=== PATIENT | female | born 1975 | race Caucasian/White ===

== ENCOUNTER 2017-02-28 10:09 | Emergency (ER) | payer SELFPAY ==
[2017-02-28 10:24] VITALS: BP 133/90; PULSE 78; TEMP 98.8; BMI 26.6
[2017-02-28] MEDS ORDERED: KETOROLAC TROMETHAMINE 60 MG/2 ML VIAL IM ONE (11:22)
[2017-02-28] MEDS ORDERED: KETOROLAC TROMETHAMINE 60 MG/2 ML VIAL ONE (11:23)
--- NOTE | 2017-02-28 13:02 | PDOC ---
History of Present Illness - General Chief Complaint: Pain Stated Complaint: LT SHOULDER PAIN Time Seen by Provider: 02/28/17 10:36 History Source: Patient Exam Limitations: Language Barrier (MICMALI milieu coordinator [id number]) - History of Present Illness Initial Comments: 02/28/17 17:41 CHIEF COMPLAINT: Left lateral shoulder pain HISTORY OF PRESENT ILLNESS: Patient is a 42-year-old female, primarily Ecuadorean- speaking information obtained by an milieu coordinator, patient presents with left lateral shoulder pain radiating down left arm, denies any chest pain, no shortness of breath. Denies any trauma. Patient reports that she has had pain for a while and is progressively getting worse. Reproduced with all movements. Occurred: reports: other (been ongoing for weeks, progressively getting worse) Severity: reports: moderate Upper Extremity Pain Location: left: shoulder Method of Injury: reports: unknown Modifying Factors: improves with: None Past History - Past Medical History Allergies/Adverse Reactions: Allergies Allergy/AdvReac Type Severity Reaction Status Date / Time No Known Allergies Allergy Verified 02/28/17 10:23 Home Medications: Ambulatory Orders Naproxen [Naprosyn -] 500 mg PO BID #20 tablet 02/28/17 Other medical history: DENIES. - Suicide/Smoking/Psychosocial Hx Smoking History: Never smoked Hx Alcohol Use: No Drug/Substance Use Hx: No Substance Use Type: None Review of Systems - Review of Systems Constitutional: No: Symptoms Reported HEENTM: No: Symptoms Reported Respiratory: No: Symptoms reported Cardiac (ROS): No: Symptoms Reported ABD/GI: No: Symptoms Reported : No: Symptoms Reported Musculoskeletal: Yes: Joint Pain. No: Joint Swelling, Muscle Pain, Muscle Weakness, Neck Pain, Joint Stiffness Integumentary: No: Symptoms Reported, Bruising, Erythema Neurological: No: Symptoms reported, Paresthesia, Tingling, Tremors Hematologic/Lymphatic: No: Symptoms Reported All Other Systems: Reviewed and Negative *Physical Exam - Vital Signs Last Vital Signs Temp Pulse Resp BP Pulse Ox 98.8 F 78 18 133/90 98 02/28/17 10:18 02/28/17 10:18 02/28/17 10:18 02/28/17 10:18 02/28/17 10:18 - Physical Exam General Appearance: Yes: Appropriately Dressed. No: Apparent Distress Neck: positive: Tender lateral (left lateral neck). negative: Tender midline Respiratory/Chest: positive: Lungs Clear, Normal Breath Sounds. negative: Respiratory Distress, Accessory Muscle Use Cardiovascular: positive: Regular Rhythm, Regular Rate Lymphatic: negative: Adenopathy Musculoskeletal: positive: Decreased Range of Motion. negative: Vertebral Tenderness Extremity: positive: Normal Capillary Refill, Normal Inspection (normal visible inspection). negative: Normal Range of Motion (decreased range of motion related to pain, left shoulder), Swelling, Erythema, Inflammation Integumentary: positive: Normal Color, Dry. negative: Erythema, Swelling, Ecchymosis, Bruising Neurologic: positive: Alert, Normal Mood/Affect, Motor Strength 5/5 (motor strength with reproducible pain with movement) Deep Tendon Reflexes: Bicep (L): 3+, Bicep (R): 3+, Tricep (L): 3+, Tricep (R): 3+ ED Treatment Course - ADDITIONAL ORDERS Additional order review: Laboratory Results 02/28/17 11:22 Urine HCG, Qual Negative - RADIOLOGY Radiology Studies Ordered: Category Date Time Status SHOULDER-LEFT [RAD] Stat Radiology 02/28/17 11:22 Completed SPINE-CERVICAL [RAD] Stat Radiology 02/28/17 11:23 Taken - Medications Given in the ED: ED Medications Discontinued Medications Generic Name Dose Route Start Last Admin Trade Name Freq PRN Reason Stop Dose Admin Ketorolac Tromethamine 60 mg 02/28/17 11:22 02/28/17 11:32 Toradol Injection - IM 02/28/17 11:23 60 mg ONCE ONE Administration Medical Decision Making - Medical Decision Making 02/28/17 13:05 A/P : Patient here for evaluation of left shoulder pain, pain to lateral shoulder with numbness and tingling radiating down hands. Denies any injury., sent to x-ray demonstrated calcifications to left lateral humerus consistent with calcific rotator cuff tendinopathy we'll discharge patient home with arm sling, Naprosyn for pain, all discharge instructions given to patient via change management lead MICMALI #[id number] I discussed the physical exam findings, ancillary test results and final diagnoses with the patient. I answered all of the patient's questions. The patient was satisfied with the care received and felt comfortable with the discharge plan and treatment plan. The patient will call to arrange follow-up and will return to the Emergency Department with any new, persistent or worsening symptoms. 02/28/17 17:40 02/28/17 17:46 *DC/Admit/Observation/Transfer Diagnosis at time of Disposition: Tendinopathy of left rotator cuff - Discharge Dispostion Disposition: HOME Condition at time of disposition: Good Admit: No - Prescriptions Prescriptions: Naproxen [Naprosyn -] 500 mg PO BID #20 tablet - Referrals Referrals: Fortino Bangura MD [Primary Care Provider] - - Patient Instructions Printed Discharge Instructions: Shoulder Tendinopathy Print Language: ROMANIAN - Post Discharge Activity Forms/Work/School Notes: Back to Work, Parent(s) Back to Work Note
== END 2017-02-28 13:05 | disposition home or self-care (01) ==
LOC: JERFT 10:09
PROC: 3E0233Z Introduction of Anti-inflammatory into Muscle, Percutaneous Approach (ICD-10-PCS; principal; 2017-02-28)
DX: M65.812 Other synovitis and tenosynovitis, left shoulder (principal)
CPT/HCPCS: 72050-TC; 73030-TC-LT; 84703; 99281-25

== ENCOUNTER 2018-08-10 16:03 | Emergency (ER) | payer OTHER ==
[2018-08-10 17:08] VITALS: BMI 23.8
--- NOTE | 2018-08-10 17:08 | PDOC ---
Rapid Medical Evaluation Time Seen by Provider: 08/10/18 17:05 Medical Evaluation: Allergies Allergy/AdvReac Type Severity Reaction Status Date / Time No Known Allergies Allergy Verified 02/28/17 10:23 08/10/18 17:05 I have performed a brief in-person evaluation of this patient. The patient presents with a chief complaint of: SALOMON x 2 days. No pmhx Pertinent physical exam findings:Unremarkable I have ordered the following: upreg The patient will proceed to the ED for further evaluation. 0 Discharge Disposition - Diagnosis Headache Qualifiers: Headache type: unspecified Headache chronicity pattern: acute headache Intractability: not intractable Qualified Code(s): R51 - Headache - Referrals - Patient Instructions - Post Discharge Activity
--- NOTE | 2018-08-10 17:26 | PDOC ---
Attending Attestation - Resident Resident Name: Alexis Grove - ED Attending Attestation I have performed the following: I have examined & evaluated the patient, The case was reviewed & discussed with the resident, I agree w/resident's findings & plan, Exceptions are as noted - Medical Decision Making 08/10/18 20:34 43 years old with no significant past medical history presented to emergency department several day history of waxing and waning headache. No red flags on patient's headache history not sudden onset not maximal at onset no associated neck pain no nausea no vomiting no diarrhea no chest pain. Patient also was experiencing left arm discomfort which made her nervous given that she does have a family history in her mother's side of CAD EKG was performed which demonstrated normal sinus rhythm with no ST elevations or T-wave inversions. A troponin was performed which was negative patient is low risk with a heart score of 0. Status post fluids Reglan and Benadryl patient's headache is completely resolved she feels much better and is asking to go home Patient was provided with neurology follow-up in case her headache returns she was instructed to return to the ED for any severe worsening symptoms or for any concerns. Findings, the need for follow-up and strict return instructions discussed patient. 08/10/18 20:35 <Hunter Urias - Last Filed: 08/10/18 20:34> - HPI HPI: 08/10/18 18:07 The patient is a 43 year old female with a significant past medical history of preeclampsia who presents to the ED for complaint of gradually increasing headache over the course of 2 days with associated intermittent dizziness, posterior neck pain and left arm pain today. She reports the headache became worse last night. She reports the headache is a strong pressure-like headache. She states the headache is located to her temporal regions, eyes and jaw bilaterally. She states she is concerned because her mother had a heart attack at a young age (48-52 years old). She reports her LMP was 10 days ago. She states she last had headaches and high blood pressure during her in 2017, however, states her symptoms today are different because she feels pressure around her eyes. She denies fever, chills, sob, chest pain, palpitations. She denies urinary changes. - Physicial Exam PE: 08/10/18 18:09 ROS: A complete review of 10 out of 10 review of systems is taken and is negative apart from what is previously mentioned below and in the HPI. Physical Exam Vitals: Triage vital signs reviewed General Appearance: No acute distress, well nourished, well developed Head: Atraumatic Eyes: Pupils equal reactive round, extraocular movement intact Neck: Supple; No nuchal rigidity Chest Wall: Nontender Cardiac: Regular rate and rhythm, no murmurs, no rubs, no gallops Lungs: Clear to auscultation bilateral, good air movement bilaterally Abdomen: Soft, nondistended, normal bowel sounds, nontender to palpation Rectal: Exam deferred Extremities: Full range of motion to all extremities, no cyanosis, clubbing, or edema Skin: Warm and dry, no rashes or lesions, no rash, no petechiae Neuro: AOX3; Cranial Nerves 2-12 grossly intact, Strength intact to all extremities, Sensation intact to all extremities, Psych: Normal mood, normal affect <Coty Freeman - Last Filed: 08/10/18 20:59> Heart Score/ECG Review - History History: Slightly suspicious - Electrocardiogram EKG: Normal - Age Age: </= 45 - Risk Factors Based on the list above the patient has:: No risk factors known - Troponin Troponin: </= normal limit - Score Heart Score - Total: 0 - ECG Impressions Comment:: 08/10/18 20:[address] elevations or T-wave inversions <Hunter Urias - Last Filed: 08/10/18 20:34> Attestations - Attestations 08/10/18 18:10 Documentation prepared by Coty Freeman, acting as medical office manager for Hunter Urias MD <Coty Freeman - Last Filed: 08/10/18 20:59>
--- NOTE | 2018-08-10 17:54 | PDOC ---
History of Present Illness - General Chief Complaint: Headache Stated Complaint: HEADACHE Time Seen by Provider: 08/10/18 17:05 History Source: Patient Exam Limitations: Language Barrier - History of Present Illness Initial Comments: 43 yo F h/o preeclampsia p/w worsening headache x 2 days. The headache became worse last night which involves the b/l temporal region, radiating to b/ l eyes, pressure like, constant, 9/10 at worse, associated with scalp tenderness , eye redness, L shoulder pain, vision change, but no n/v, photophobia or phonophobia. She endorses similar episodes during pregnancies and family history of preeclampsia in sister and daughter. Her LMP was 10 days ago. Denies fever, chills, sob, chest pain. Past History - Past Medical History Allergies/Adverse Reactions: Allergies Allergy/AdvReac Type Severity Reaction Status Date / Time No Known Allergies Allergy Verified 08/10/18 17:08 Home Medications: Ambulatory Orders Naproxen [Naprosyn -] 500 mg PO BID #20 tablet 02/28/17 COPD: No - Suicide/Smoking/Psychosocial Hx Smoking History: Never smoked Hx Alcohol Use: No Drug/Substance Use Hx: No Substance Use Type: None Review of Systems - Review of Systems Able to Perform ROS?: Yes Is the patient limited Korean proficient: Yes Constitutional: No: Chills, Fever HEENTM: Yes: Blurred Vision, Recent change in vision. No: Tearing, Ear Discharge, Nose Pain, Nose Congestion, Hearing Loss, Throat Pain Respiratory: No: Cough, Shortness of Breath Cardiac (ROS): No: Chest Pain, Edema ABD/GI: No: Abdominal Distended, Diarrhea, Nausea, Vomiting Neurological: Yes: Headache. No: Weakness *Physical Exam - Vital Signs Last Vital Signs Temp Pulse Resp BP Pulse Ox 98.8 F 76 16 126/76 100 08/10/18 17:05 08/10/18 17:05 08/10/18 17:05 08/10/18 17:05 08/10/18 17:05 - Physical Exam General Appearance: Yes: Mild Distress HEENT: positive: Normal Voice. negative: Photophobia, Scleral Icterus (R), Scleral Icterus (L), Muffled/Hoarse voice, Pharyngeal Erythema, Tonsillar Exudate, Nasal Congestion, Rhinorrhea Neck: positive: Supple. negative: Rigid, Rigidity Respiratory/Chest: positive: Lungs Clear, Normal Breath Sounds Cardiovascular: positive: Regular Rate, S1, S2. negative: Edema, JVD, Murmur Gastrointestinal/Abdominal: negative: Tender Neurologic: positive: collar starcher II-XII NML intact *DC/Admit/Observation/Transfer Diagnosis at time of Disposition: Headache Qualifiers: Headache type: unspecified Headache chronicity pattern: acute headache Intractability: not intractable Qualified Code(s): R51 - Headache - Referrals Referrals: Fortino Bangura MD [Primary Care Provider] - - Patient Instructions - Post Discharge Activity
[2018-08-10] MEDS ORDERED: METOCLOPRAMIDE HCL 10 MG TABLET (FP) PO ONE ×2 (18:09→18:18)
[2018-08-10] MEDS ORDERED: diphenhydrAMINE HCL 25 MG CAPSULE (FP) PO ONE ×2 (18:09→18:18)
[2018-08-10] MEDS ORDERED: ACETAMINOPHEN 500 MG TABLET (FP) PO ONE (18:10)
[2018-08-10] MEDS ORDERED: SODIUM CHLORIDE 1,000 ML IV STA (18:14)
[2018-08-10] MEDS ORDERED: ACETAMINOPHEN 325 MG TABLET (FP) ONE (18:17)
[2018-08-10 18:49] LABS: BASO % 0.7 % (0-2.0); EOS % 0.1 % (0-4.5); HEMATOCRIT 39.7 % (32.4-45.2); HEMOGLOBIN 13.2 GM/dL (10.7-15.3); LYMPH % 27.5 % (8-40); MCH 29.5 pg (25.7-33.7); MCHC 33.3 g/dl (32.0-36.0); MEAN CELL VOLUME 88.4 fl (80-96); MEAN PLT VOLUME 9.3 fl (7.5-11.1); MONO % 5.3 % (3.8-10.2); NEUT % 66.4 % (42.8-82.8); PLATELET COUNT 235 K/MM3 (134-434); RDW 13.6 % (11.6-15.6); WHITE BLOOD COUNT 11.2 K/mm3 (4.0-10.0)
[2018-08-10 19:20] LABS: ALBUMIN 3.9 g/dl (3.4-5.0); ALK PHOS 83 U/L (45-117); ANION GAP 9 MMOL/L (8-16); BILIRUBIN,TOTAL 0.4 mg/dL (0.2-1); BLOOD UREA NITROGEN 8 mg/dL (7-18); CALCIUM 8.8 mg/dL (8.5-10.1); CHLORIDE 104 mmol/L (98-107); CO2 26 mmol/L (21-32); CREATININE 0.6 mg/dL (0.55-1.3); GLUCOSE,RANDOM 76 mg/dL (74-106); POTASSIUM 3.7 mmol/L (3.5-5.1); SGOT/AST 14 U/L (15-37); SGPT/ALT 16 U/L (13-61); SODIUM 140 mmol/L (136-145); TOT PROT 7.7 g/dl (6.4-8.2)
--- NOTE | 2018-08-10 20:39 | PDOC ---
*Physical Exam - Vital Signs Last Vital Signs Temp Pulse Resp BP Pulse Ox 98.8 F 76 16 126/76 100 08/10/18 17:05 08/10/18 17:05 08/10/18 17:05 08/10/18 17:05 08/10/18 17:05 - Physical Exam General Appearance: Yes: Appropriately Dressed. No: Apparent Distress HEENT: positive: Normal Voice Neck: positive: Supple Respiratory/Chest: negative: Respiratory Distress Neurologic: positive: Fully Oriented, Alert, Normal Mood/Affect, Other (Gait Normal.) ED Treatment Course - LABORATORY CBC & Chemistry Diagram: 08/10/18 18:27 08/10/18 18:27 - ADDITIONAL ORDERS Additional order review: Laboratory Results 08/10/18 08/10/18 18:27 17:51 Sodium 140 Potassium 3.7 Chloride 104 Carbon Dioxide 26 Anion Gap 9 BUN 8 Creatinine 0.6 Creat Clearance w eGFR 108.60 Random Glucose 76 Calcium 8.8 Total Bilirubin 0.4 AST 14 L ALT 16 Alkaline Phosphatase 83 Troponin I < 0.02 Total Protein 7.7 Albumin 3.9 Urine HCG, Qual Negative 08/10/18 18:27 RBC 4.50 MCV 88.4 MCHC 33.3 RDW 13.6 MPV 9.3 Neutrophils % 66.4 Lymphocytes % 27.5 Monocytes % 5.3 Eosinophils % 0.1 Basophils % 0.7 - Medications Given in the ED: ED Medications Discontinued Medications Generic Name Dose Route Start Last Admin Trade Name Freq PRN Reason Stop Dose Admin Acetaminophen 500 mg 08/10/18 18:10 08/10/18 18:27 Tylenol - PO 08/10/18 18:11 500 mg ONCE ONE Administration Diphenhydramine HCl 25 mg 08/10/18 18:09 08/10/18 18:27 Benadryl - PO 08/10/18 18:10 25 mg ONCE ONE Administration Sodium Chloride 1,000 mls @ 1,000 mls/hr 08/10/18 18:14 08/10/18 18:27 Normal Saline - IV 08/10/18 19:13 1,000 mls/hr ASDIR STA Administration Metoclopramide HCl 10 mg 08/10/18 18:09 08/10/18 18:27 Reglan - PO 08/10/18 18:10 10 mg ONCE ONE Administration Medical Decision Making - Medical Decision Making 08/10/18 19:00 Received sign out from resident Dr. Grove. In short, pt is a 43 y/o female presenting with headache and left arm numbness/tingling. No red flags on interview. CBC remarkable for borderline leukocytosis without left shift. Low suspicion for SBI. CMP unremarkable for significant electrolyte derangement. Troponin not elevated. EKG unremarkable for ischemic changes. Low suspicion for ACS. Headache improving and pt requests to be discharge home. Will provide neurology referral for outpatient f/u. Return precautions provided. *DC/Admit/Observation/Transfer Diagnosis at time of Disposition: Headache Qualifiers: Headache type: unspecified Headache chronicity pattern: acute headache Intractability: not intractable Qualified Code(s): R51 - Headache - Discharge Dispostion Disposition: HOME Condition at time of disposition: Good Decision to Admit order: No - Referrals Referrals: Fortino Bangura MD [Primary Care Provider] - Mario Pena DO [Staff Physician] - - Patient Instructions Printed Discharge Instructions: DI for Headache Additional Instructions: You were seen today for a headache and left arm numbness. Your blood work and EKG were normal today. Your symptoms were not likely from a problem with your heart. You can take over the counter Tylenol or Advil as needed for pain. Take as directed on the package insert. Do not exceed the recommended dosage. Follow up with your primary care doctor within the next week or as needed. You will need to call to make an appointment. The number is included in this packet. A copy of todays results are attached to this packet. Take it to the appointment so your doctor can review them. You can also follow up with a neurologist. I have placed a referral for you to see Dr. Pena. You will need to call to make an appointment. The number is included in this packet. Go to the nearest emergency department if your condition worsens or you feel like you need additional emergency evaluation. Print Language: SLOVAK - Post Discharge Activity
[2018-08-10 21:05] VITALS: BP 128/89; PULSE 88; TEMP 98.5
--- NOTE | 2018-08-13 10:55 | EKG ---
Test Reason : Blood Pressure : / mmHG Vent. Rate : 084 BPM Atrial Rate : 084 BPM P-R Int : 148 ms QRS Dur : 074 ms QT Int : 376 ms P-R-T Axes : 065 056 039 degrees QTc Int : 444 ms NORMAL SINUS RHYTHM NORMAL ECG NO PREVIOUS ECGS AVAILABLE Confirmed by VANESSA BARBER MD ([id number]) on 08/13/2018 10:55:10 AM Referred By: Confirmed By:VANESSA BARBER MD
== END 2018-08-10 21:05 | disposition home or self-care (01) ==
LOC: JER 16:03
PROC: 3E0337Z Introduction of Electrolytic and Water Balance Substance into Peripheral Vein, Percutaneous Approach (ICD-10-PCS; principal; 2018-08-10)
DX: R51 Headache (principal)
CPT/HCPCS: 36415; 80053; 84484; 84703; 85025; 93005; 93010; 96360; 99283-25; J7030